=== PATIENT | male | born 1965 | race Caucasian/White ===

== ENCOUNTER 2017-12-26 09:25 | Outpatient (CLI) | payer MEDICARE, OTHER | END 2017-12-26 09:26 | disposition home or self-care (01) | LOC: BICMRI 09:25 | PROVIDERS: ATTEND Podiatrist | DX: M79.671 Pain in right foot (principal); M65.9 Synovitis and tenosynovitis, unspecified ==

== ENCOUNTER 2021-09-19 20:35 | Inpatient (IN) | payer OTHER, MEDICARE ==
[2021-09-19] MEDS ORDERED: Morphine 4 MG/ML VIAL ONE ×2 (21:31→22:13)
[2021-09-19] MEDS ORDERED: Ondansetron PF 4 MG/2 ML Vial ONE (21:31)
[2021-09-19] MEDS ORDERED: Boostrix 0.5 ML (Tdap) VIAL ONE (22:13)
[2021-09-19 22:18] LABS: #Eosinphils 0.1 thou/uL (0.0-0.7); #Lymphocytes 1.2 thou/uL (1.20-3.40); #Monocytes 0.9 thou/uL (0.11-0.59); #Neutrophils 15.4 thou/uL (1.40-6.50); %Basophils 0.2 % (0.0-1.0); %Eosinophils 0.6 % (0.0-10.0); %Lymphocytes 6.8 % (21.0-51.0); %Monocytes 4.9 % (0.0-10.0); %Neutrophils 87.6 % (42.0-75.0); Hemoglobin 13.4 g/dL (14.0-18.0); Mean Corpuscular HGB CONC 35.7 g/dL (32.0-36.0); Mean Corpuscular Hemoglobin 33.6 pg (27.0-31.0); Mean Platelet Volume 7.2 fL (7.4-10.4); Platelet Count 224 thou/uL (130-400); RBC Distribution Width 11.5 % (11.5-14.5); White Blood Cell (WBC) Count 17.6 thou/uL (4.8-10.8)
[2021-09-19] MEDS ORDERED: Diazepam 10 MG/2 ML SYRINGE ONE (22:25)
[2021-09-19 22:28] LABS: INR-International Normal Ratio 1.2; Prothrombin Time 15.2 sec (12.0-14.7)
[2021-09-19 22:28] LABS: Bilirubin Negative (Negative); Blood, Urine Negative (Negative); Clarity Clear (Clear); Glucose, Urine (Dipstick) Normal (Negative); Ketone, Urine Negative (Negative); Leukocyte Negative Leu/uL (Negative); Nitrite Negative (Negative); Protein, Urine (Dipstick) 20 mg/dL (Neg-Trace); Specific Gravity, Urine 1.043 (1.002-1.036); Urobilinogen Normal mg/dL (Less than 2); pH, Urine 6.5 (5.0-9.0)
[2021-09-19 22:39] LABS: ALT (SGPT) 18 U/L (8-55); AST (SGOT) 25 U/L (5-34); Albumin 3.7 g/dL (3.5-5.0); Alcohol Less than 10 mg/dL (Less than 10); Alkaline Phosphatase 65 U/L (40-110); Anion Gap 8 mmol/L (10-20); BUN (Urea Nitrogen) 15 mg/dL (8.4-25.7); Bilirubin, Total 0.3 mg/dL (0.2-1.2); Calc. Creatinine Clearance 0 mL/min (70-130); Carbon Dioxide 31 mmol/L (22-29); Chloride 104 mmol/L (98-107); Globulin 2.3 g/dL (2.4-3.5); Glucose 106 mg/dL (70-105); Lipase 117 U/L (8-78); Potassium 3.7 mmol/L (3.5-5.1); Sodium 139 mmol/L (136-145)
[2021-09-19] MEDS ORDERED: Dextrose 50% Abboject 50 ML SYRINGE SLOW IVP PRN (23:06)
[2021-09-19] MEDS ORDERED: hydrALAZINE 20 MG/ML VIAL SLOW IVP PRN (23:06)
[2021-09-19] MEDS ORDERED: Ondansetron PF 4 MG/2 ML Vial IVP PRN (23:06)
[2021-09-19] MEDS ORDERED: Dextrose 5% in Water 1,000 ML IV PRN (23:06)
[2021-09-19] MEDS ORDERED: Ketorolac Tromethamine 30 MG/ML VIAL ONE (23:10)
[2021-09-19] MEDS ORDERED: Cyclobenzaprine 10 MG TAB PO PRN (23:12)
[2021-09-19] MEDS ORDERED: Morphine 4 MG/ML VIAL SLOW IVP PRN (23:13)
[2021-09-20 00:19] LABS: SARS-CoV-2 NAA Rapid Test Not Detected (NotDetected)
[2021-09-20] MEDS: Acetaminophen 500 MG TAB PO SCH ×4 (00:51→18:32)
[2021-09-20] MEDS: traMADol HCl 50 MG TAB PO SCH ×4 (00:53→18:32)
[2021-09-20 01:08] VITALS: BMI 24.0
[2021-09-20 01:19] LABS: Phosphorus 3.1 mg/dL (2.3-4.7)
[2021-09-20] MEDS: Morphine 4 MG/ML VIAL SLOW IVP PRN (01:59)
[2021-09-20] MEDS: Ketorolac Tromethamine 30 MG/ML VIAL IVP SCH ×3 (06:19→18:32)
[2021-09-20] MEDS: Gabapentin 300 MG CAP PO SCH ×3 (06:20→21:44)
[2021-09-20] MEDS ORDERED: ALPRAZolam 0.5 MG TAB PO PRN (08:03)
[2021-09-20] MEDS: Propafenone HCl 150 MG TAB PO SCH ×2 (09:25→21:45)
[2021-09-20] MEDS: Senokot S 8.6-50 MG TAB PO SCH ×2 (09:25→21:45)
[2021-09-20] MEDS: Famotidine/PF 20 mg/2ml Vial SLOW IVP SCH ×2 (09:26→21:44)
[2021-09-20] MEDS: Citalopram 20 MG TAB PO SCH (09:26)
[2021-09-20] MEDS: Amlodipine 10 MG TAB PO SCH (09:26)
[2021-09-20] MEDS: Polyethylene Glycol 3350 17 GM Packet PO SCH (09:27)
[2021-09-21] MEDS: Ketorolac Tromethamine 30 MG/ML VIAL IVP SCH ×5 (00:30→23:02)
[2021-09-21] MEDS: Acetaminophen 500 MG TAB PO SCH ×5 (00:30→23:01)
[2021-09-21] MEDS: traMADol HCl 50 MG TAB PO SCH ×5 (00:32→23:02)
[2021-09-21] MEDS: Morphine 4 MG/ML VIAL SLOW IVP PRN (04:30)
[2021-09-21] MEDS ORDERED: Thrombin 5000 UNITS/5 ML VIAL ONE (06:31)
[2021-09-21] MEDS ORDERED: Dexmedetomidine 200 MCG/2 ML VIAL ONE (06:39)
[2021-09-21] MEDS ORDERED: Fentanyl 100 MCG/2 ML VIAL ONE ×3 (06:39→13:02)
[2021-09-21] MEDS ORDERED: ceFAZolin 2 GM/DEX 5% 100 ML BAG ONE (07:04)
[2021-09-21] MEDS ORDERED: Sodium Chloride 0.9% 1,000 ML IV SCH (07:45)
[2021-09-21] MEDS: Gabapentin 300 MG CAP PO SCH ×3 (07:46→23:01)
[2021-09-21] MEDS ORDERED: PROPOFOL 200 MG/20 ML VIAL ONE (07:47)
[2021-09-21] MEDS ORDERED: Lidocaine 1% PF 5 ML VIAL ONE (07:47)
[2021-09-21] MEDS ORDERED: Phenylephrine 10 MG/ML VIAL ONE (07:47)
[2021-09-21] MEDS ORDERED: Ondansetron PF 4 MG/2 ML Vial ONE (07:47)
[2021-09-21] MEDS ORDERED: Dexamethasone 20 MG/5 ML VIAL ONE (07:47)
[2021-09-21] MEDS ORDERED: Rocuronium Bromide 10 MG/ML (10ML VIAL) ONE (07:47)
[2021-09-21] MEDS ORDERED: ePHEDrine 50 MG/ML VIAL ONE (07:47)
[2021-09-21] MEDS ORDERED: Glycopyrrolate 0.2 MG/ML 5 ML SYRINGE ONE (07:47)
[2021-09-21] MEDS: Citalopram 20 MG TAB PO SCH (10:25)
[2021-09-21] MEDS: Polyethylene Glycol 3350 17 GM Packet PO SCH (10:25)
[2021-09-21] MEDS: Amlodipine 10 MG TAB PO SCH (10:25)
[2021-09-21] MEDS: Famotidine/PF 20 mg/2ml Vial SLOW IVP SCH ×2 (10:25→20:34)
[2021-09-21] MEDS: Propafenone HCl 150 MG TAB PO SCH ×2 (10:26→20:34)
[2021-09-21] MEDS: Senokot S 8.6-50 MG TAB PO SCH ×2 (10:26→20:34)
[2021-09-21] MEDS: Sodium Chloride 0.9% 1,000 ML IV SCH ×2 (10:27→18:13)
[2021-09-21] MEDS ORDERED: Morphine 2 MG/ML VIAL SLOW IVP PRN (12:40)
[2021-09-21] MEDS ORDERED: Promethazine HCl 25 MG/ML VIAL IM PRN (12:42)
[2021-09-21] MEDS ORDERED: Ondansetron HCl/PF 4 MG/2 ML Vial IVP PRN (12:42)
[2021-09-21] MEDS ORDERED: Promethazine HCl 25 MG/ML VIAL IVPB PRN (12:42)
[2021-09-21] MEDS ORDERED: HYDROmorphone 2 MG/ML VIAL SLOW IVP PRN (12:42)
[2021-09-21] MEDS ORDERED: Morphine 4 MG/ML VIAL SLOW IVP PRN (13:24)
[2021-09-21] MEDS ORDERED: Promethazine HCl 25 MG/ML VIAL ONE (13:24)
[2021-09-21] MEDS: HYDROcodone/Acetaminophen 7.5/325 mg Tablet PO PRN (20:34)
[2021-09-22] MEDS: Sodium Chloride 0.9% 1,000 ML IV SCH (02:15)
[2021-09-22 06:05] LABS: #Eosinphils 0.2 thou/uL (0.0-0.7); #Lymphocytes 1.3 thou/uL (1.20-3.40); #Monocytes 0.9 thou/uL (0.11-0.59); #Neutrophils 6.8 thou/uL (1.40-6.50); %Basophils 0.2 % (0.0-1.0); %Eosinophils 2.3 % (0.0-10.0); %Lymphocytes 14.1 % (21.0-51.0); %Monocytes 9.7 % (0.0-10.0); %Neutrophils 73.7 % (42.0-75.0); Hemoglobin 10.4 g/dL (14.0-18.0); Mean Corpuscular HGB CONC 35.1 g/dL (32.0-36.0); Mean Corpuscular Hemoglobin 33.4 pg (27.0-31.0); Mean Corpuscular Volume 95.2 fL (78.0-98.0); Mean Platelet Volume 7.5 fL (7.4-10.4); Platelet Count 187 thou/uL (130-400); RBC Distribution Width 11.6 % (11.5-14.5); White Blood Cell (WBC) Count 9.2 thou/uL (4.8-10.8)
[2021-09-22] MEDS: Ketorolac Tromethamine 30 MG/ML VIAL IVP SCH (06:08)
[2021-09-22] MEDS: Acetaminophen 500 MG TAB PO SCH ×4 (06:09→23:20)
[2021-09-22] MEDS: Gabapentin 300 MG CAP PO SCH ×3 (06:09→21:31)
[2021-09-22] MEDS: traMADol HCl 50 MG TAB PO SCH ×4 (06:09→23:20)
[2021-09-22 06:27] LABS: Anion Gap 9 mmol/L (10-20); BUN (Urea Nitrogen) 15 mg/dL (8.4-25.7); Calc. Creatinine Clearance 129 mL/min (70-130); Calcium 8.4 mg/dL (7.8-10.44); Carbon Dioxide 29 mmol/L (22-29); Chloride 101 mmol/L (98-107); Glucose 137 mg/dL (70-105); Magnesium 1.9 mg/dL (1.6-2.6); Phosphorus 2.5 mg/dL (2.3-4.7); Potassium 4.1 mmol/L (3.5-5.1); Sodium 135 mmol/L (136-145)
[2021-09-22] MEDS ORDERED: Magnesium Sulfate 2 GM in Sodium Chloride 0.9% 100 ML IV SCH (07:00)
[2021-09-22] MEDS ORDERED: Magnesium 2 GM/50 ML 2 GM in Premix Bag 1 BAG IVPB SCH (08:00)
[2021-09-22] MEDS: Amlodipine 10 MG TAB PO SCH (09:09)
[2021-09-22] MEDS: Propafenone HCl 150 MG TAB PO SCH ×2 (09:10→21:31)
[2021-09-22] MEDS: Citalopram 20 MG TAB PO SCH (09:10)
[2021-09-22] MEDS: Senokot S 8.6-50 MG TAB PO SCH ×3 (09:10→21:40)
[2021-09-22] MEDS: Famotidine/PF 20 mg/2ml Vial SLOW IVP SCH ×2 (09:10→21:31)
[2021-09-22] MEDS: Polyethylene Glycol 3350 17 GM Packet PO SCH (09:11)
[2021-09-22] MEDS: HYDROcodone/Acetaminophen 7.5/325 mg Tablet PO PRN (21:30)
[2021-09-22] MEDS ORDERED: traZODone HCl 50 MG TAB PO SCH (22:00)
[2021-09-23] MEDS: traMADol HCl 50 MG TAB PO SCH ×2 (05:24→12:10)
[2021-09-23] MEDS: Acetaminophen 500 MG TAB PO SCH (05:24)
[2021-09-23] MEDS: Gabapentin 300 MG CAP PO SCH ×2 (05:25→14:36)
[2021-09-23 07:18] LABS: #Eosinphils 0.6 thou/uL (0.0-0.7); #Lymphocytes 1.4 thou/uL (1.20-3.40); #Monocytes 0.8 thou/uL (0.11-0.59); #Neutrophils 4.6 thou/uL (1.40-6.50); %Basophils 0.4 % (0.0-1.0); %Eosinophils 8.4 % (0.0-10.0); %Lymphocytes 19.1 % (21.0-51.0); %Monocytes 11.2 % (0.0-10.0); Hemoglobin 10.2 g/dL (14.0-18.0); Mean Corpuscular HGB CONC 35.3 g/dL (32.0-36.0); Mean Corpuscular Hemoglobin 34.1 pg (27.0-31.0); Mean Corpuscular Volume 96.6 fL (78.0-98.0); Mean Platelet Volume 7.3 fL (7.4-10.4); Platelet Count 180 thou/uL (130-400); RBC Distribution Width 11.7 % (11.5-14.5); Red Blood Cell (RBC) Count 2.98 mill/uL (4.70-6.10); White Blood Cell (WBC) Count 7.5 thou/uL (4.8-10.8)
[2021-09-23] MEDS ORDERED: traZODone HCl 50 MG TAB PO SCH ×2 (09:00→21:00)
[2021-09-23] MEDS: Acetaminophen/Codeine 30-300mg Tablet PO PRN ×2 (09:21→14:44)
[2021-09-23] MEDS: Propafenone HCl 150 MG TAB PO SCH (09:22)
[2021-09-23] MEDS: Citalopram 20 MG TAB PO SCH (09:22)
[2021-09-23] MEDS: Amlodipine 10 MG TAB PO SCH (09:22)
[2021-09-23] MEDS: Senokot S 8.6-50 MG TAB PO SCH (09:22)
[2021-09-23] MEDS: Famotidine/PF 20 mg/2ml Vial SLOW IVP SCH (09:22)
[2021-09-23] MEDS: Polyethylene Glycol 3350 17 GM Packet PO SCH (09:23)
[2021-09-23] MEDS ORDERED: Acetaminophen 325 MG TAB PO SCH (12:00)
[2021-09-23 16:25] VITALS: BP 149/101; TEMP 98.5
== END 2021-09-23 17:40 | disposition home or self-care (01) | DRG 460 ==
LOC: ERS 20:35 → SURG B 23:06
PROVIDERS: ADMIT Surgery; ATTEND Surgery
PROC: 0SG1071 Fusion of 2 or more Lumbar Vertebral Joints with Autologous Tissue Substitute, Posterior Approach, Posterior Column, Open Approach (ICD-10-PCS; principal; 2021-09-21)
PROC: 01NB0ZZ Release Lumbar Nerve, Open Approach (ICD-10-PCS; 2021-09-21)
DX: S32.041A Stable burst fracture of fourth lumbar vertebra, initial encounter for closed fracture (principal); G83.4 Cauda equina syndrome; Z20.822 Contact with and (suspected) exposure to COVID-19; I10 Essential (primary) hypertension; F43.10 Post-traumatic stress disorder, unspecified; F17.210 Nicotine dependence, cigarettes, uncomplicated; M48.061 Spinal stenosis, lumbar region without neurogenic claudication; Z95.2 Presence of prosthetic heart valve; V46.5XXA Car driver injured in collision with other nonmotor vehicle in traffic accident, initial encounter
CPT/HCPCS: 36415; 70450; 71045; 71260; 72125; 74177; 76000; 80048; 80053; 80307; 81003; 83690; 83735; 84100; 85025; 85610; 85730; 90715; 93005; 94760; 96374; 96375; C1713; C1768; C1776; G0390; J1100; J1885; J2270; J2370; J2405; J2550; J2704; J3010; J3360; J3370; J3475; J3490; J7050; S0028; U0002

== ENCOUNTER 2021-11-02 13:03 | Outpatient (CLI) | payer MEDICARE, OTHER | END 2021-11-02 13:04 | disposition home or self-care (01) | LOC: BICRAD 13:03 | PROVIDERS: ATTEND Physician Assistant | DX: M47.26 Other spondylosis with radiculopathy, lumbar region (principal); Z98.890 Other specified postprocedural states | CPT/HCPCS: 72100 ==

== ENCOUNTER 2022-05-23 10:38 | Outpatient (CLI) | payer OTHER, MEDICARE | END 2022-05-23 10:39 | disposition home or self-care (01) | LOC: TBSIIMAG 10:38 | PROVIDERS: ATTEND Surgery | DX: S32.001D Stable burst fracture of unspecified lumbar vertebra, subsequent encounter for fracture with routine healing (principal) | CPT/HCPCS: 72100 ==

== ENCOUNTER 2023-07-29 14:55 | Outpatient (CLI) | payer MEDICARE, OTHER | END 2023-07-29 14:56 | disposition home or self-care (01) | LOC: SCSMRI 14:55 | PROVIDERS: ATTEND Family Medicine | DX: S32.040S Wedge compression fracture of fourth lumbar vertebra, sequela (principal); M96.1 Postlaminectomy syndrome, not elsewhere classified; M47.26 Other spondylosis with radiculopathy, lumbar region; M51.16 Intervertebral disc disorders with radiculopathy, lumbar region; M89.38 Hypertrophy of bone, other site; Z98.1 Arthrodesis status | CPT/HCPCS: 72100; 72148 ==

== ENCOUNTER 2025-08-16 08:43 | Outpatient (CLI) | payer MEDICARE, OTHER | END 2025-08-16 08:44 | disposition home or self-care (01) | LOC: BICMAMMO 08:43 | PROVIDERS: ATTEND Internal Medicine | DX: Z13.820 Encounter for screening for osteoporosis (principal); M81.0 Age-related osteoporosis without current pathological fracture | CPT/HCPCS: 77080 ==